=== PATIENT | female | born 1935 | race Caucasian/White ===

== ENCOUNTER → 2019-04-12 09:36 | Outpatient (CLI) | payer OTHER, SELFPAY ==
--- NOTE | 2019-04-12 09:39 | DI.RAD.S_ITS ---
PROCEDURE: XR KNEE RT 3V INDICATIONS: right knee pain TECHNIQUE: 3 views of the knee were acquired. COMPARISON: None. FINDINGS: Bones: There is severe medial and mild lateral right femorotibial compartment narrowing. There are large tricompartmental osteophytes and narrowing at the patellofemoral joint space. No acute fracture or dislocation. There is a questionable periarticular erosion along the lateral aspect of the tibial plateau. Soft tissues: No joint effusion. No suspicious soft tissue calcifications. IMPRESSION: 1. Severe right knee osteoarthritis. 2. Questionable periarticular bony erosion which may be associated with erosive arthritis. Dictated by: Kendra James M.D. on 04/12/2019 at 11:44 Approved by: Kendra James M.D. on 04/12/2019 at 12:51
--- NOTE | 2019-04-12 09:39 | DI.RAD.S_ITS ---
PROCEDURE: XR SHOULDER RT MIN 2V INDICATIONS: right shoulder pain TECHNIQUE: 3 views of the shoulder were acquired. COMPARISON: [facility], CR, XR SHOULDER MIN 2VW RT, 06/07/2015, 8:56. FINDINGS: Bones: There is severe narrowing of the right glenohumeral joint with bone on bone contact, subchondral sclerosis and cystic change. Periarticular osteophyte formation is present. There is mild flattening of the humeral head surface. Moderate acromioclavicular joint degeneration. Mild inferior migration of the humeral head Soft tissues: No suspicious soft tissue calcifications. IMPRESSION: 1. Progressive severe right glenohumeral joint degeneration with mild flattening of the humeral head surface and avascular necrosis cannot be excluded. If indicated MRI could be performed for further assessment. 2. Mild inferior migration of the humeral head and joint effusion cannot be excluded. Dictated by: Jorge Shields [facility] Interpreted: Felton Javier MD on 04/12/2019 at 10:35 Approved by: Felton Jaiver M.D. on 04/12/2019 at 12:54
== END ==
PROVIDERS: Family Provider Family Medicine; Visit Provider Physical Medicine & Rehabilitation
DX: M25.561 Pain in right knee (principal); M17.11 Unilateral primary osteoarthritis, right knee; M25.511 Pain in right shoulder; M19.011 Primary osteoarthritis, right shoulder
CPT/HCPCS: 73030; 73562

== ENCOUNTER → 2020-10-04 11:10 | Outpatient (CLI) | payer OTHER, SELFPAY ==
--- NOTE | 2020-10-04 | DI.US.S_ITS ---
PROCEDURE: US PERIPH VENOUS LOW EXTREM RT INDICATIONS: Rule out DVT TECHNIQUE: Real-time imaging, as well as color and pulse Doppler interrogation, were performed of the lower extremity deep veins from the inguinal ligament to the popliteal fossa. COMPARISON: None. FINDINGS: The common femoral, femoral and popliteal veins are normally compressible, and free of intraluminal thrombus. Color and pulse Doppler demonstrate normal phasic intraluminal flow. There is normal augmentation response to distal compression maneuver. The nonvascular ovoid foci can be seen within the right thigh anteriorly, at the areas of clinical concern. These measure 4.5 x 1.4 x 4 cm and 3.8 x 1.5 x 4 cm. No abnormal vascularity can be seen. A Parikh's cyst can also be seen measuring 4.1 x 1.1 x 3.1 cm. IMPRESSION: Negative for deep venous thrombosis. Apparent thigh lipoma is seen at the area of clinical concern. A Parikh's cyst can also be seen. Dictated by: Brennan Whaley M.D. on 10/04/2020 at 10:50 Approved by: Brennan Whaley M.D. on 10/04/2020 at 10:52
== END ==
PROVIDERS: Family Provider Family Medicine; PCP Student in an Organized Health Care Education/Training Program; Referring Provider Student in an Organized Health Care Education/Training Program; Visit Provider Student in an Organized Health Care Education/Training Program
DX: M25.561 Pain in right knee (principal); R22.41 Localized swelling, mass and lump, right lower limb; M71.21 Synovial cyst of popliteal space [Baker], right knee
CPT/HCPCS: 93971

== ENCOUNTER → 2020-11-29 14:29 | Outpatient (CLI) | payer OTHER, SELFPAY ==
--- NOTE | 2020-11-29 14:32 | DI.RAD.S_ITS ---
PROCEDURE: XR SHOULDER RT MIN 2V INDICATIONS: Knee/shoulder pain TECHNIQUE: Three views of the shoulder were acquired. COMPARISON: [facility], CR, XR SHOULDER RT MIN 2V, 04/12/2019, 9:41. FINDINGS: Bones: No acute fractures or dislocations. No suspicious bony lesions. Visualized ribs appear intact. Severe degenerative changes are seen in the glenohumeral joint with remodeling of the articular surfaces and marginal osteophyte formation, mildly progressed when compared to the radiographs from 04/12/2019. Mild to moderate acromioclavicular osteoarthrosis is present. Soft tissues: No suspicious soft tissue calcifications. IMPRESSION: Severe degenerative changes at the glenohumeral joint with remodeling of the articular surfaces, which may be related to primary osteoarthritis versus an inflammatory arthritis or prior trauma with secondary degenerative changes. Dictated by: Maury Esquivel M.D. on 12/04/2020 at 17:02 Approved by: Maury Esquivel M.D. on 12/04/2020 at 17:04
--- NOTE | 2020-11-29 14:32 | DI.RAD.S_ITS ---
PROCEDURE: XR KNEE RT 3V INDICATIONS: Knee pain TECHNIQUE: 3 views of the knee were acquired. COMPARISON: [facility], CR, XR KNEE RT 3V, 04/12/2019, 9:41. FINDINGS: Bones: No acute fracture is identified. Severe tricompartmental degenerative changes are seen with a grade joint space narrowing in the medial and lateral compartments and tricompartmental marginal osteophyte formation. There is irregularity of the medial femoral condyle articular surface that does not appear significantly changed, which may be related to subchondral osteophyte formation. The previously seen possible erosion at the lateral tibial plateau does not appear significantly changed. There is increased lucency in the central tibial plateau that could also be related to and osseous erosion. Soft tissues: Moderate joint effusion. Chondrocalcinosis is noted in the lateral compartment. IMPRESSION: 1. Severe tricompartmental degenerative changes, which may be secondary to primary osteoarthritis or an underlying inflammatory arthritis with secondary degenerative changes. 2. Moderate joint effusion. 3. Chondrocalcinosis. Dictated by: Maury Esquivel M.D. on 12/04/2020 at 16:57 Approved by: Maury Esquivel M.D. on 12/04/2020 at 17:01
== END ==
PROVIDERS: PCP Student in an Organized Health Care Education/Training Program; Referring Provider Physical Medicine & Rehabilitation; Visit Provider Physical Medicine & Rehabilitation
DX: M17.11 Unilateral primary osteoarthritis, right knee (principal); M25.461 Effusion, right knee; M11.261 Other chondrocalcinosis, right knee; M75.101 Unspecified rotator cuff tear or rupture of right shoulder, not specified as traumatic; M19.011 Primary osteoarthritis, right shoulder
CPT/HCPCS: 73030; 73562

== ENCOUNTER → 2021-03-19 16:34 | Outpatient (CLI) | payer OTHER, SELFPAY | PROVIDERS: PCP Student in an Organized Health Care Education/Training Program; Referring Provider Orthopaedic Surgery; Visit Provider Orthopaedic Surgery | DX: Z01.818 Encounter for other preprocedural examination (principal); Z01.812 Encounter for preprocedural laboratory examination | CPT/HCPCS: 93005 ==

== ENCOUNTER → 2021-03-28 14:33 | Outpatient (CLI) | payer OTHER, SELFPAY ==
[2021-03-28 15:18] LABS: Add Manual Diff / Slide Review NO; Basophils Absolute Auto 100 /uL (0-100); Eosinophils Absolute Auto 300 /uL (0-450); Eosinophils Percent Auto 5.9 % (2-4); Hematocrit 37.2 % (36-46); Lymphocytes Absolute Auto 1300 /uL (1100-4500); Lymphocytes Percent Auto 22.2 % (25-40); Mean Corpuscular HGB Conc 32.3 % (30-36); Mean Corpuscular Hemoglobin 30.7 PG (26-34); Mean Corpuscular Volume 95.1 fL (80-100); Monocytes Absolute Auto 500 /uL (0-900); Monocytes Percent Auto 9.1 % (3-14); Neutrophils Absolute Auto 3700 /uL (1500-7000); Neutrophils Percent Auto 61.8 % (50-75); Platelet Count 232 X10^3/uL (150-400); Red Blood Cell Count 3.92 X10^6/uL (4.0-5.2); Red Cell Distribution Width 13.4 % (11.6-14.8); White Blood Cell Count 5.9 X10^3/uL (4.5-11.0)
[2021-03-28 15:40] LABS: BUN Creatinine Ratio 21.5 (6-22); Blood Urea Nitrogen 28 mg/dL (7-17); Calcium 9.6 mg/dL (8.4-10.2); Carbon Dioxide 23 mmol/L (22-32); Chloride 108 mmol/L (98-107); Estimated Glomerular Filt Rate 38.8 mL/min (>60); Glucose 101 mg/dL (80-110); HEMOLYSIS < 15 (0-50); Potassium 4.8 mmol/L (3.4-5.1); Sodium 137 mmol/L (137-145)
== END ==
PROVIDERS: PCP Student in an Organized Health Care Education/Training Program; Referring Provider Orthopaedic Surgery; Visit Provider Orthopaedic Surgery
DX: I10 Essential (primary) hypertension (principal); Z01.818 Encounter for other preprocedural examination; Z01.812 Encounter for preprocedural laboratory examination
CPT/HCPCS: 36415; 80048; 85025

== ENCOUNTER → 2021-04-07 11:33 | Outpatient (CLI) | payer OTHER, SELFPAY ==
[2021-04-07 12:26] LABS: COVID19 -Nasal RAPID Negative (Negative)
== END ==
PROVIDERS: PCP Student in an Organized Health Care Education/Training Program; Visit Provider Physician Assistant
DX: Z01.812 Encounter for preprocedural laboratory examination (principal); Z20.822 Contact with and (suspected) exposure to COVID-19
CPT/HCPCS: 87635

== ENCOUNTER 2021-04-09 06:23 | Day surgery (SDC) | payer OTHER, SELFPAY ==
[2021-04-02 09:44] VITALS: BMI 33.0
[2021-04-09] VITALS (14 sets, daily range): BP systolic 109–162; BP diastolic 44–80; PULSE 55–106; RESP 11–99; TEMP 35.7–36.7; O2SAT 92–100; BMI 33.0
--- NOTE | 2021-04-09 06:39 | DI.RAD.S_ITS ---
PROCEDURE: XR KNEE RT 1TO2V INDICATIONS: post op total knee TECHNIQUE: 2 view(s) of the knee acquired. COMPARISON: [facility], CR, XR KNEE RT 3V, 11/29/2020, 14:33. FINDINGS: Bones: Patient is status post knee joint arthroplasty. Hardware components are in expected positions. Visualized bony structures are intact. Soft tissues: Overlying postoperative changes are noted. IMPRESSION: Expected postoperative appearance. Dictated by: Clifford Russo M.D. on 04/09/2021 at 10:54 Approved by: Clifford Russo M.D. on 04/09/2021 at 10:57
[2021-04-09] MEDS: PREGABALIN 75 MG CAPSULE PO (06:59)
[2021-04-09] MEDS: CELECOXIB 200 MG CAPSULE PO (07:00)
[2021-04-09] MEDS: ACETAMINOPHEN 325 MG TABLET 975 MG PO (07:00)
[2021-04-09] MEDS: LACTATED RINGERS 1,000 ML 42 ML IV (07:04)
--- NOTE | 2021-04-09 07:34 | PM.PREOP ---
Pre-operative Note COVID-19 COVID-19 status: Negative Result date/Date tested (Pos, Neg/Pending): 04/07/21 Interval Note History & Physical reviewed/Exam performed by Physician: Yes Changes to H&P: No
--- NOTE | 2021-04-09 07:34 | PM.OP.1 ---
Operative Date/Time/Diagnoses Date of procedure: 04/09/21 Time of procedure: 09:56 Pre-op diagnosis: Right knee osteoarthritis Post-op diagnosis: same Procedure & Clinicians Procedure: Right total knee replacement Same procedure as scheduled: Yes Indications: The patient has had progressively worsening right knee pain with radiographic changes consistent with arthritis. Non-operative management has failed and the patient has requested total knee replacement. The risks, benefits and alternatives to surgery were discussed with the patient prior to proceeding. Risks discussed included, but were not limited to, failure to relieve pain, stiffness, infection, nerve damage, deep venous thrombosis, pulmonary embolism, stroke, coma, heart attack, permanent paralysis and , as well as the potential need for eventual revision of the prosthetic. Surgeon: Carlos Eduardo Talamantes Charge Weigher: Tod Spence Click Yes if Unassisted: No Anesthesia Type: Local Operative Notes Findings: Severe tricompartmental osteoarthritis with large osteophytes, bony erosion, flexion contracture which was fixed. Closure Type: primary Specimen(s): none sent Prosthetic devices, grafts, tissues, transplants, or devices: Implants used in this procedure were manufactured by the [employer] and included the BCS II Journey total knee replacement with a size 5 right cobalt chromium femoral component, a size 4 right non porous tibial base plate, a 10 mm cross-linked polyethylene insert and a 32 mm oval Gabi II patella. Applied: implant(s) Estimated Blood Loss (mL): 25 Blood products transfused: none Tourniquet time (min): 61 Procedure in detail: The patient was seen in the pre-operative area, where the patient identified the right knee as the operative site and this was marked with my initials. The patient received pre-operative antibiotics, and was taken to the operating room and placed on the operative table in the supine position. After satisfactory anesthesia, a residential support specialist out was performed. The right leg was encircled with a tourniquet about the proximal thigh, and the leg was prepared from the toes to the tourniquet with ChloroPrep in the usual fashion and draped through sterile drapes. The leg was elevated and exsanguinated with Eschmark bandage and the tourniquet inflated to 250 mmHg pressure. The knee was approached through an approximately 18 cm incision centered over the patella and carried into the knee through a medial parapatellar arthrotomy. The anterior osteophytes and soft tissues were removed. The rotational landmarks of Meldrim's line and the transepicondylar axis were marked on the femur with electrocautery, and intramedullary guide holes for the femur and tibia were created. The distal femoral cut was made in 6 degrees of valgus using the intramedullary guide at the +2 cut setting due to her significant preoperative flexion contracture. The proximal tibial cut was then made using the intramedullary guide, taking 9 mm of bone off the less involved side. The extension gap was checked and the rotation of the femoral component confirmed with the gap balancing system. The anterior, posterior and chamfer cuts were then made. The posterior osteophytes and soft tissues were then removed. The posterior capsule was injected with part of a mixture of 60 ml 0.25% Marcaine mixed with 20 ml Exparel for post-operative pain control. The remainder of this mixture was injected into the capsule and subcutaneous tissues during cement curing. The tibia was prepared with the rotation set by an extra medullary guide. Trial tibial and femoral components were then placed and the intercondylar notch cut through the femoral trial. Range of motion was 0-135 degrees, with good stability throughout the range. The patella was then cut to accommodate the patellar prosthetic. There was no need for a lateral release. The trials were then removed, and the femoral hole plugged with a bone plug. The bone was prepared with pulsatile lavage, and dried with a sponge. Cement was applied and the final prosthetics placed. Excess cement was removed during and after cement curing. After confirming there was no extruded cement posteriorly, the final tibial insert was placed. The knee was copiously irrigated and the tourniquet deflated. Hemostasis was obtained. The capsule was closed with interrupted # 2 polyester suture. The subcutaneous layer was closed with 3-0 Vicryl, and the skin with a running 3-0 V-Lock suture and Dermabond. An Aquacel Ag dressing was applied and the patient was taken to recovery having tolerated the procedure well. Complications: none Post-operative Condition: stable Disposition: PACU Plan for aftercare: The patient will be maintained on a standard total knee replacement protocol with weight bearing as tolerated. The patient will receive aspirin and sequential compression devices for DVT prophylaxis. The patient will be discharged home when safe for the home environment.
[2021-04-09] MEDS: TRANEXAMIC ACID 1,000 MG VIAL 1000 MG INJ ×2 (08:20→09:20)
--- NOTE | 2021-04-09 08:26 | SUR.OPER ---
Supine on padded OR bed. Pillow under head, arms secured on padded armboards <90 degree abduction. Safety belt across torso. Non-operative leg secured with tape over blanket over lower leg. Operative leg secured in DeMayo/Hilario positioner. Foam padded brace at thigh of operative leg.
[2021-04-09] MEDS: BUPIVACAINE 0.25% (PF) VIAL 30 ML INJ (08:32)
[2021-04-09] MEDS: CEFAZOLIN 1 GM VIAL 2 GM IV (08:33)
[2021-04-09] MEDS: BUPIVACAINE LIPOSOME 266 MG/20 ML VIAL INJ (08:33)
[2021-04-09] MEDS: fentaNYL 100 MCG/2 ML INJ IV ×2 (10:22→10:39)
[2021-04-09] MEDS: OXYCODONE IR 5 MG TABLET 2.5 MG PO (10:22)
--- NOTE | 2021-04-09 10:57 | SUR.PHASEI ---
No pain to r knee, VSS, c/o l lower back/side pain, pt admitted it to be like her chronic back pain, pt medicated with fentanyl and oxycodone for back pain. spinal site c/d/i. Dr Wiley aware.No new orders. Pt turned to R side per request, warm blanket to back. Report called to BYRON De
--- NOTE | 2021-04-09 11:06 | SUR.PHASEI ---
Jarred score 7/10, BP normally 120/70- 160's on admit. Dr Saurabh hillman.
--- NOTE | 2021-04-09 11:07 | SUR.PHASEI ---
Pt transported up to room via bed on room air.
--- NOTE | 2021-04-09 11:20 | SUR.PHASEI ---
Pt left in room in stable condition, bed low, locked SCD's gun synchronizer light in reach.
[2021-04-09] MEDS: LACTATED RINGERS 1,000 ML 100 ML IV ×2 (11:21→21:02)
--- NOTE | 2021-04-09 13:04 | PC.NURSE ---
Patient alert, oriented rates left lower back pain 5/10 and reports it has improved. Given 2.5mg oxycodone in PACU. Denies nausea. PPP RLE, patient able to wiggle toes. Patient placed on 2L sats 96% RA sats 85% when asleep. Patient oriented to room and call light.
--- NOTE | 2021-04-09 14:12 | CM.DANOTE ---
Addendum entered by Debora Akbar R.N. 04/09/21 15:55: Checked back in with patient and daughter, Yahaira. Patient does have some outpatient P.T. set up starting on the , with [facility]. Daughter will be here later in the day, afternoon, for further caregiver training. Daughter agrees that if patient is able to get in the car from the hospital, she should be able to make her P.t. outpatient appointments. Will check in tomorrow and see how she does with P.T. Original Note: DCP: Case received, EMR reviewed and met with patient. Daughter, Yahaira Emery was at bedside. Introduced self and role. Was able to obtain information regarding patient's baseline activity status prior to surgery, as well patient's current living situation. DCP assessment completed with information currently available. Patient is an 86 year old female who admitted early this morning to the care of the orthopedic team. PCP: Dr. Parry. Payer: [facility]. Patient came to the hospital for a surgical procedure. She had right total knee surgery. Patient has history of osteoarthritis of her right knee. According to notes, patient has been full weight bearing at her baseline. She has also been under to care of Dr. Welch at the pain clinic. Met with patient in her room, and daughter, Yahaira, who was at bedside. Patient had her surgery this morning. She has not yet worked with P.T. Patient resides here in [place] with her daughter, Yahaira Emery, who is main contact. Patient has been a for approximately 5 years. She had been living in a 5th wheel on her daughter's property, but now, is living with her daughter. Daughter is employed out of home, working with and breeding animals. Patient has a cane and walker for home use. She stated that she can stay on the main level of her home, but the bathroom is downstairs. She gave up driving recently, and family will take her to appointments as needed. Daughter mentioned that she will have family support at home. Discussed discharge planning, and patient and daughter mentioned that Dr. Talamantes had mentioned the possibility of therapist coming to the home, for it will be difficult for patient to get in and out of car to go to outpatient P.T. Daughter also indicated that her mother only takes Tylenol for discomfort, is sensitive to stronger pain medications. They would like to have a therapist come to the house to give them some ideas of safety in the home. Brought in a Medicare Choice List of agencies that serve [place]. They will review. Will go ahead and start face to face. Patient has not yet worked with therapy team, will also need stair training. Discussed home health services with patient and daughter, and explained how they work, and is covered by [employer]. P: DCP to continue to follow. Will see how patient does with P.T. Will initiate face to face, and will follow up with patient and daughter regarding choice of home health agencies. Debora Akbar RN/Neck Band Maker
[2021-04-09] MEDS: ACETAMINOPHEN 325 MG TABLET 650 MG PO ×2 (14:30→21:00)
--- NOTE | 2021-04-09 15:27 | PT.IIE ---
Current Diagnoses Unilateral primary osteoarthritis, right knee (04/09/21) Surgery Performed Operation Date: 04/09/21 07:45 Actual Procedures p Total Knee Arthroplasty(Right) - Carlos Eduardo Talamantes MD Surgical History (Last Updated 04/02/21 @ 10:37 by Nery Steven RN) History of arthroplasty of left knee (03/10/07) History of bladder suspension procedure History of surgery Hx of arthroscopy of right knee (2003) Hx of bilateral cataract extraction Hx of blepharoplasty (03/24/13) Hx of cholecystectomy Hx of dilation and curettage Hx of discectomy (1979) Hx of tonsillectomy Hx of tubal ligation Status post replacement of left shoulder joint Medical History (Last Updated 04/02/21 @ 10:27 by Nery Steven RN) Anemia CKD (chronic kidney disease) Diabetes DJD of right shoulder Gout Hearing impaired Hiatal hernia HLD (hyperlipidemia) HTN (hypertension) Osteoarthritis Osteoporosis Rotator cuff tear arthropathy of right shoulder Seasonal allergies Spinal stenosis Urge incontinence Physical Therapy Inpatient Evaluation/Re-Eval M1 PT/OT-IP Prior Functional Status Start: 04/09/21 11:50 Freq: NEEDED Status: Active Protocol: Document 04/09/21 15:27 AW (Rec: 04/09/21 15:52 AW [id number]) Medical Review Prior Functional Status Medical History Reviewed Yes Communication WNL. Pt is an effective verbal communicator. Mobility and Gait Pt uses a tripod cane ~90% of the time. She states she can walk in to [facility] and then uses a regular shopping cart for stability. In the past few weeks, she has resorted to using a motorized cart due to pain. Activities of Daily Living and IADL's Independent with ADL's. Social History Household Members children Living Arrangements House Number of Floors (Floors) Two Floors Number of Stairs To Enter/Railing? Pt has 3 JOURDAN with R rail ascending. She stays on the main level but likes to go downstairs to use the shower. However, she states she does not anticipate showering first week at home and can use the main floor toilet. Home Environment High Toilet,Tub/Shower Home Equipment Front Wheel Walker,Four Wheel Walker,Grab Bars In Shower Additional Social History Comment Pt has a sink/vanity on the left side of the toilet. She normally sleeps on a tall bed but plans to use a lower day bed at first. Pt's daughter, son in law, and grandson live downstairs. They are not normally home but have planned for someone to be available at all times at discharge. 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 Onset Date 04/09/21 Weight Bearing Status Weight Bearing Status Weight Bear as Tolerated M3 PT-IP Subjective Start: 04/09/21 11:50 Freq: NEEDED Status: Active Protocol: Document 04/09/21 15:27 AW (Rec: 04/09/21 15:52 AW [id number]) Subjective Physical Therapy Visit Type Type Initial Evaluation Visit Start Time 14:45 Visit Stop Time 15:27 Total Visit Minutes 42 Notes Pt's daughter, Yahaira, was present throughout evaluation. Number of JIG BORE OPERATOR Visits 0 Physical Therapy Visit Comments Patient Comments Pt would like to use the commode. Patient Goals Return home with family support. Therapy Pain Assessment Pain When Pain Assessed During Mobility Pain Present Pain Present Pain Reported Location right knee Intensity 6 Scale Used Numeric (0 - 10) Pain Management Techniques Apply Cold,Timing of Activity with Medications M4 PT-IP Mobility and Gait Start: 04/09/21 11:50 Freq: NEEDED Status: Active Protocol: Document 04/09/21 15:27 AW (Rec: 04/09/21 15:52 AW [id number]) PT-Bed Mobility Assessment Supine to Sit Supine to Sit Minimal Assistance,1 Person Assistance Sit to Supine Sit to Supine Minimal Assistance,1 Person Assistance Scooting Scooting to Edge of Bed Contact Guard Assistance PT-Transfer Assessment Sit to and From Stand Sit to and from Stand Contact Guard Assistance, Minimal Assistance,1 Person Assistance,Use of Upper Extremities Equipment Transfer Assistive Device Gait Belt,Front Wheeled Walker Orthotic/Prosthetic Devices or Brace: No Transfers Transfer Destination Bed,Bedside Commode Transfer Technique Stand Step Pivot Transfer Ability Level of Assist Contact Guard Assistance Comments Mobility Comments Pt was sitting up in bed as PT arrived and was anxious to use the BSC. BP was 122/68 HR 62. With HOB flat, pt transitioned to long sitting and then required min assist to move her legs toward the left side of the bed, exiting as she would at home. Pt denied lightheadedness. She stood from the bed min assist and used the FWW to transfer to BSC set up on her right side. She voided and then stood CGA to complete pericare . She used FWW to ambulate 12 feet in the room CGA with one instance of buckling RLE. She needed no additional assist to recover. She returned to the bed and completed supine to sit min assist to elevate the operative leg to the bed. Pt was positioned with call light and tray table in reach. Her daughter remained in the room. Caregiver training arranged for 1600 tomorrow. Care Management was informed. Gait Assessment Gait Gait Assistance Required: Contact Guard Assist Distance (Feet) 12 Able to Maintain Weight Bearing Status Yes During Gait Assistive Devices Assistive Device Gait Belt,Front Wheeled Walker Orthotic/Prosthetic Devices or Brace: No Gait Deviations General Gait Pattern Antalgic,Decreased Stride Length,Festinating,Flexed Trunk,Step-to Gait Factors Limiting Gait Function Factors Limiting Gait Function Decreased Activity Tolerance, Decreased Sensation,Decreased Strength,Limited Range of Motion,Pain,Poor Balance Comments Gait Comments See mobility comments for details. Stair Climbing Assessment Comments Stair Climbing Comments Not assessed. PT-Balance Assessment Sitting Balance and Reactions Static Sitting Balance Ability Good Dynamic Sitting Balance Ability Good Standing Balance and Reactions Static Standing Balance Ability Good Dynamic Standing Balance Ability Fair Device Used FWW M5 PT-IP Objective Assessments Start: 04/09/21 11:50 Freq: NEEDED Status: Active Protocol: Document 04/09/21 15:27 AW (Rec: 04/09/21 15:52 AW [id number]) Orientation Orientation/Cognition Level of Alertness Alert Orientation Name Language Function Ability No Deficits Noted Safety Awareness Understands Safety Issues Memory Description No Deficits Noted Gross Range of Motion Lower Extremity ROM Assessment Right Impaired Impairments R knee 5-75 Strength Lower Extremity Strength Assessment Right Impaired Hip 3/5 Ankle 4-/5 Comments Strength Comments LLE grossly 4/5 Sensation Assessment Sensation Gross Sensation WNL M6 PT-IP Treatment Start: 04/09/21 11:50 Freq: NEEDED Status: Active Protocol: Document 04/09/21 15:27 AW (Rec: 04/09/21 15:52 AW [id number]) Physical Therapy Treatment Exercises Exercises Ankle Pumps,Passive Knee Extension Hang Education Education Provided Weight Bearing Status,Post-Op Packet,Safety Other Treatments Other Treatment Performed Educated pt and her daughter on PT plan of care, weightbearing status, and rationale for use of FWW at this time. M7 PT-IP Assessment and Plan Start: 04/09/21 11:50 Freq: NEEDED Status: Active Protocol: Document 04/09/21 15:27 AW (Rec: 04/09/21 15:52 AW [id number]) PT Summary Assessment and Plan Potential Rehabilitation Potential Good Status of Condition at Evaluation Evolving Summary Impairments Pain,ROM,Strength,Balance, Sensation,Bed Mobility, Transfers,Gait Assessment Summary Alexa is an 86 yo woman seen for PT evaluation on POD0 following R TKA. She is modified independent at baseline with use of tripod cane and has family at home to provide assist with ADL's as needed. On evaluation, pt required CGA to min assist for mobility. PT anticipates she will progress and be safe to discharge home with assist and outpatient PT once medically stable. Will conduct stair and caregiver training tomorrow at 16:00 with pt's daughter. Goals Bed Mobility Goal Standby Assistance Transfer Goal Standby Assistance,Front Wheeled Walker Gait Goal Standby Assistance,Front Wheel Walker Gait Distance 100 Other Goals - up/down 3 steps with R rail ascending CGA Days to Meet Goals 3 Frequency of Treatment Frequency Of Treatment Twice a Day Treatment Plan Physical Therapy Treatment Plan Bed Mobility Training,Transfer Training,Gait Training, Therapeutic Exercise,Balance Retraining,Post Op Education, Discharge Planning,Hot or Cold Pack Other Recommendations and Next Treatment transfers, ambulation, CGT ( Focus incl stairs) at 1600 Precautions Other Precautions WBAT RLE Recommendations To Nursing Amount of Assist Needed 1 Person Assist Discharge Recommendations PT Discharge Recommendations Home with 19/05 Assist Available,Outpatient PT Equipment Needed for Home Before consider tub transfer bench Discharge Transportation Needs at Discharge Private Vehicle
[2021-04-09] MEDS: METFORMIN HCL 500 MG TABLET PO (17:03)
[2021-04-09] MEDS: TAMSULOSIN 0.4 MG CAPSULE PO (20:59)
[2021-04-09] MEDS: VIT C/E/ZN/COPPR/LUTEIN/ZEAXAN CAPSULE 1 CAP PO (20:59)
[2021-04-09] MEDS: OXYBUTYNIN 5 MG TABLET PO (20:59)
[2021-04-09] MEDS: PANTOPRAZOLE DR 20 MG TABLET PO (20:59)
[2021-04-09] MEDS: ASPIRIN EC 81 MG TABLET PO (21:00)
[2021-04-09] MEDS: DOCUSATE 100 MG CAPSULE PO (21:00)
[2021-04-09] MEDS: hydrOXYzine pamoate 25 MG CAPSULE PO (23:41)
[2021-04-10 05:31] VITALS: BP 156/74; PULSE 60; RESP 16; TEMP 36.1
[2021-04-10 06:32] LABS: Hematocrit 31.4 % (36-46); Hemoglobin 10.3 g/dL (12.0-16.0)
[2021-04-10] MEDS: VIT C/E/ZN/COPPR/LUTEIN/ZEAXAN CAPSULE 1 CAP PO (07:54)
[2021-04-10] MEDS: ASPIRIN EC 81 MG TABLET PO (07:54)
[2021-04-10] MEDS: METFORMIN HCL 500 MG TABLET PO (07:54)
[2021-04-10] MEDS: PANTOPRAZOLE DR 20 MG TABLET PO (07:54)
[2021-04-10] MEDS: ACETAMINOPHEN 325 MG TABLET 650 MG PO ×2 (07:54→14:27)
[2021-04-10] MEDS: OXYBUTYNIN 5 MG TABLET PO (07:55)
[2021-04-10] MEDS: DOCUSATE 100 MG CAPSULE PO (07:55)
[2021-04-10] MEDS: ACEBUTOLOL 200 MG CAPSULE 400 MG PO (07:55)
--- NOTE | 2021-04-10 07:55 | P.DS_ITS ---
History of Present Illness History of Present Illness Date Patient Seen: 04/10/21 Time Patient Seen: 07:55 Chief complaint: OPB Narrative: The history and physical is contained in the chart in a previous note. Please refer to that note for this information. Discharge Providers Provider Discharge Date: 04/10/21 Primary care physician: Denisse Parry MD Consults: 04/09/21 11:14 Consult to Discharge Planning Routine Comment: Consult to Physical Therapy Evaluate & Treat Comment: Physician Instructions: postop TKA protocol Discharge provider: Carlos Eduardo Talamantes MD Summary Hospital Course Discharge Diagnosis: 1. Right knee osteoarthritis 2. Post hemorrhagic anemia Hospital Course: The patient was admitted to the hospital and taken directly to the operating room on April 09, 2021 where she underwent a right total knee replacement without complications. She had a mild post hemorrhagic anemia postoperative day 1 which will not require specific treatment. At the time of this dictation it is anticipated that she will make satisfactory progress during the day and be ready for discharge home later in the day. Status at Discharge Cognitive/behavioral status at discharge: oriented Functional status at discharge: independent ambulation Overall status at discharge: patient is progressing back to baseline Time Spent with Patient Time spent: Less than 30 minutes Exam Vital Signs (past 8 hours): - 04/10/21 05:31 Temperature 97.0 F L Pulse Rate 60 Respiratory Rate 16 Blood Pressure 156/74 H Oxygen Delivery Method Room Air Oxygen Flow Rate 0 Narrative Exam Narrative: Right knee wound is dressed with no drainage on the bandage. Calf is soft. Light touch and motion are intact in the right lower extremity. Objective Labs Result Diagrams: 04/10/21 06:06 Labs: Laboratory Results - last 24 hr 04/10/21 06:06 Hgb 10.3 L Hct 31.4 L PFSH Medical History (Updated 04/02/21 @ 10:27 by Nery Steven RN) Anemia CKD (chronic kidney disease) Diabetes DJD of right shoulder Gout Hearing impaired Hiatal hernia HLD (hyperlipidemia) HTN (hypertension) Osteoarthritis Osteoporosis Rotator cuff tear arthropathy of right shoulder Seasonal allergies Spinal stenosis Urge incontinence Surgical History (Updated 04/02/21 @ 10:37 by Nery Steven RN) History of arthroplasty of left knee (03/10/07) History of bladder suspension procedure History of surgery Hx of arthroscopy of right knee (2003) Hx of bilateral cataract extraction Hx of blepharoplasty (03/24/13) Hx of cholecystectomy Hx of dilation and curettage Hx of discectomy (1979) Hx of tonsillectomy Hx of tubal ligation Status post replacement of left shoulder joint Family History Father Aortic aneurysm Mother Heart disease Brother Bladder cancer Social History marital status: unknown household members: children occupational status: previously employed Smoking Status: Never smoker alcohol intake: current substance use type: does not use Discharge Assessment & Plan Assessment and Plan Assessment: Stable postoperative day 1 status post right total knee replacement with mild post hemorrhagic anemia. Plan of Treatment: The patient is to see physical therapy today. If she make satisfactory progress she will be discharged later in the day. Follow-up will be at my office in 10- 14 days. A prescription for a 2.5-5 mg dose of oxycodone has been sent to [facility]. She has also been instructed in the use of Tylenol for postoperative pain control in addition to her Mobic. She is already on aspirin 81 mg b.i.d. for DVT prophylaxis. Discharge Plan Discharge Plan Patient Disposition: Home Discharge orders & Medications Discharge Orders: Discharge (Order); Ordered 04/10/21 Ordered By: Carlos Eduardo Talamantes Prescriptions: New acetaminophen 325 mg Tablet 650 mg PO TID 30 Days Qty: 180 RF: 0 oxycodone 5 mg Tablet 5 mg PO Q4HR PRN (Reason: Pain, Moderate (4-6)) Qty: 20 RF: 0 Continued metformin [Glucophage] 500 MG tablet 500 mg PO BID Qty: 0 RF: 0 lisinopril 20 MG tablet 20 mg PO QDAY Qty: 0 RF: 0 triamterene-hydrochlorothiazid [Dyazide] 37.5 MG/25 MG capsule 1 cap PO QDAY Qty: 90 RF: 3 aspirin 81 mg Tablet 81 mg PO BID RF: 0 PreserVision AREDS-2 250-90-40-1 mg Capsule 1 tab PO BID RF: 0 oxybutynin chloride 5 mg tablet 5 mg PO BID RF: 0 tamsulosin 0.4 mg capsule 0.4 mg PO BEDTIME RF: 0 acebutolol 400 mg capsule 400 mg PO DAILY RF: 0 omeprazole 20 mg tablet,delayed release (DR/EC) 20 mg PO BID RF: 0 meloxicam 15 mg tablet 15 mg PO DAILY RF: 0 Follow up/Referrals: Denisse Parry MD [Primary Care Provider] - Carlos Eduardo Talamantes MD [Physician] - 2 Weeks Diet/Activity/Treatments Diet: Diet as Tolerated and Carb-consistent/Diabetic Activity: You may bear weight as tolerated on your right knee. Cold/Heat Therapy: You may apply ice for 15 minutes of every hour as needed to the right knee for pain control. Skin/Wound/Dressing Care Report to your healthcare provider any signs of infection, such as:: chills, fever, night sweats, increased pain, unusual drainage and unusual redness Dressing: You may remove the Marbin wrap 3 days after surgery and shower normally with the deeper dressing in place. Leave the deeper dressing on until your follow-up. If the central strip of the deeper dressing becomes saturated with either water or blood, please call the office to have it changed. Visit Report/Discharge Packet Instructions: DI for Knee Replacement Stand Alone Forms: Surgery Discharge Discharge Data Primary Care Provider: Denisse Parry Attending Provider: Carlos Eduardo Talamantes
[2021-04-10] MEDS: lisinopriL 20 MG TABLET PO (08:02)
[2021-04-10] MEDS: INSULIN LISPRO 100 UNIT/ML 3ML VIAL SUBCUT (08:02)
[2021-04-10] MEDS: MELOXICAM 7.5 MG TABLET 15 MG PO (08:02)
[2021-04-10] MEDS: TRIAMTERENE/HCTZ 37.5/25 CAPSULE 1 CAP PO (08:02)
[2021-04-10 08:37] VITALS: BP 152/66; PULSE 67; RESP 18; TEMP 36.4; O2SAT 98
--- NOTE | 2021-04-10 10:10 | PT.IPTN ---
Current Diagnoses Unilateral primary osteoarthritis, right knee (04/09/21) Surgery Performed Operation Date: 04/09/21 07:45 Actual Procedures p Total Knee Arthroplasty(Right) - Carlos Eduardo Talamantes MD Physical Therapy Treatment Note M2 PT-IP Current Condition Start: 04/09/21 11:50 Freq: NEEDED Status: Active Protocol: Document 04/09/21 15:27 AW (Rec: 04/09/21 15:52 AW [id number]) Physical Therapy Current Condition Current Condition Evaluation Date 04/09/21 Treatment Diagnosis s/p R TKA; difficulty in walking. Onset Date 04/09/21 Weight Bearing Status Weight Bearing Status Weight Bear as Tolerated M3 PT-IP Subjective Start: 04/09/21 11:50 Freq: NEEDED Status: Active Protocol: Document 04/10/21 09:35 SP (Rec: 04/10/21 11:37 SP [id number]) Subjective Physical Therapy Visit Type Type Treatment Note Visit Start Time 09:35 Visit Stop Time 10:10 Total Visit Minutes 35 Number of INVESTIGATOR VICE Visits 1 Physical Therapy Visit Comments Patient Comments Pt willing to work with therapy. Patient Goals Return home with family support. Therapy Pain Assessment Pain When Pain Assessed During Mobility Pain Present Pain Present Pain Reported Location right knee Intensity 2 Scale Used 1-2/10 at rest, 7-8/10 during mob Description Pressure,Spasm,Tightness,With Movement Pain Behaviors Facial Grimacing Pain Management Techniques Distraction,Re-positioning, Timing of Activity with Medications M4 PT-IP Mobility and Gait Start: 04/09/21 11:50 Freq: NEEDED Status: Active Protocol: Document 04/10/21 09:35 SP (Rec: 04/10/21 11:37 SP [id number]) PT-Bed Mobility Assessment Sit to Supine Sit to Supine Standby Assistance PT-Transfer Assessment Sit to and From Stand Sit to and from Stand Standby Assistance,Use of Upper Extremities Equipment Transfer Assistive Device Gait Belt,Front Wheeled Walker ,4 Wheeled Walker Orthotic/Prosthetic Devices or Brace: No Transfers Transfer Destination Bed Transfer Technique Pt ambulated using FWW, 4WW Transfer Ability Level of Assist Standby Assistance,Use of Upper Extremities Comments Mobility Comments Pt was reclined chair when arrived. Assisted lowering leg rests. Scoot to EOC and sit> stand SBA with use BUE. Pt ambulated around room using FWW and back to chair, good position and slow descent using BUE. SIt>stand using 4WW with cue x1 for brake mgt check prior to stand. Pt ambulated further into hallway to stairs, complete stairs and back to room approx 220 ft using 4WW SBA. Pt demonstrated good positioning and 4WW brake mgt at EOB and reaching back for slow descent to sit EOB, sit>supine with ability to lift RLE itself and lateral scoot to center herself in bed. Reviewed post op ex, provided gait belt for self heel slides. Pt had call light and all needs in reach. Pt stated daughter is nervous and requested caregiver training at 330 today due to previous surgeries she needed extra physical support and wanted to work together in PT for safety before DC. Will conduct caregiver training at that time and be ready to return home with daughter to assist her when needed if when medically cleared. Pt stated has Outpatient PT already set up with assist for transportation. Gait Assessment Gait Gait Assistance Required: Standby Assistance Distance (Feet) 220 Able to Maintain Weight Bearing Status Yes During Gait Assistive Devices Assistive Device Gait Belt,Front Wheeled Walker Orthotic/Prosthetic Devices or Brace: No Gait Deviations General Gait Pattern Antalgic,Decreased Stride Length,Festinating,Flexed Trunk Factors Limiting Gait Function Factors Limiting Gait Function Decreased Activity Tolerance, Decreased Sensation,Decreased Strength,Limited Range of Motion,Pain Comments Gait Comments Pt walked using FWW in room step over step sBA with good pacing 30 ft. Pt ambulated in hallway 220 ft using 4WW with good brake mgt SBA, step over step occasional cuing for quad facilitation for knee extension to allow for decreased pain over anterior R knee due in slightly flexion position during midstance with good feedback helped decreased pain. Stair Climbing Assessment Evaluation Level of Assist On Stairs Minimal Assistance Devices Stair Climbing Assistive Devices Right Railing Technique/Endurance Stair Climbing Direction Ascend and Descend Stair Climbing Technique Step to Step Number of Steps Climbed 3 Stair Climbing Set # Repetitions (reps) 1 Comments Stair Climbing Comments Pt completed ascend/descend 3 stairs step to patterning using CARE TRANSITION COORDINATOR on L and RHR. Pt states has hurry cane at home wants to use for mobility so assimulated CARE TRANSITION COORDINATOR on L Min A for WB LUE, stable. Will assess use of BUE on R HR or SPC in LUE during pm tx during caregiver training. PT-Balance Assessment Sitting Balance and Reactions Static Sitting Balance Ability Normal Dynamic Sitting Balance Ability Normal Standing Balance and Reactions Static Standing Balance Ability Good Dynamic Standing Balance Ability Good Device Used FWW & 4WW M5 PT-IP Objective Assessments Start: 04/09/21 11:50 Freq: NEEDED Status: Active Protocol: Document 04/09/21 15:27 AW (Rec: 04/09/21 15:52 AW [id number]) Orientation Orientation/Cognition Level of Alertness Alert Orientation Name Language Function Ability No Deficits Noted Safety Awareness Understands Safety Issues Memory Description No Deficits Noted Gross Range of Motion Lower Extremity ROM Assessment Right Impaired Impairments R knee 5-75 Strength Lower Extremity Strength Assessment Right Impaired Hip 3/5 Ankle 4-/5 Comments Strength Comments LLE grossly 4/5 Sensation Assessment Sensation Gross Sensation WNL M6 PT-IP Treatment Start: 04/09/21 11:50 Freq: NEEDED Status: Active Protocol: Document 04/10/21 09:35 SP (Rec: 04/10/21 11:37 SP [id number]) Physical Therapy Treatment Exercises Exercises Ankle Pumps,Quad Sets,Heel Slides,Supine Hip Abduction, Seated Knee Flexion/Extension Knee ROM Measurement 70 deg in supine during HS using gait belt AAROM Education Education Provided Weight Bearing Status,Post-Op Packet,Safety Other Treatments Other Treatment Performed INVESTIGATOR VICE educated pt is ok to use fWW or 4WW at this time with good demonstration during tx. M7 PT-IP Assessment and Plan Start: 04/09/21 11:50 Freq: NEEDED Status: Active Protocol: Document 04/10/21 09:35 SP (Rec: 04/10/21 11:37 SP [id number]) PT Summary Assessment and Plan Potential Rehabilitation Potential Good Status of Condition at Evaluation Evolving Summary Impairments Pain,ROM,Strength,Balance, Sensation,Bed Mobility, Transfers,Gait Progress Towards Goals Progressing Toward Goals,Slow Progress due to Pain Assessment Summary Pt is SBA during all mobility using FWW or 4WW. Min A during stair mgt but support was CARE TRANSITION COORDINATOR on L due to not having cane, will assess cane and or b UE on R HR during caregiver training at 1530 per daughter' s request when she arrives. INVESTIGATOR VICE anticipates she will progress and be safe to discharge home with assist and outpatient PT once medically stable. Will conduct stair and caregiver training tomorrow at 1530 with pt's daughter. Goals Bed Mobility Goal Standby Assistance Transfer Goal Standby Assistance,Front Wheeled Walker Gait Goal Standby Assistance,Front Wheel Walker Gait Distance 100 Other Goals - up/down 3 steps with R rail ascending CGA Days to Meet Goals 3 Frequency of Treatment Frequency Of Treatment Twice a Day Treatment Plan Physical Therapy Treatment Plan Bed Mobility Training,Transfer Training,Gait Training, Therapeutic Exercise,Balance Retraining,Post Op Education, Discharge Planning,Hot or Cold Pack Other Recommendations and Next Treatment transfers, ambulation, CGT ( Focus incl stairs) at 1530 Precautions Other Precautions WBAT RLE Recommendations To Nursing Amount of Assist Needed Standby Assistance Discharge Recommendations PT Discharge Recommendations Home with Assistance, Outpatient PT Equipment Needed for Home Before consider tub transfer bench Discharge Transportation Needs at Discharge Private Vehicle
[2021-04-10] MEDS: OXYCODONE IR 5 MG TABLET PO (10:59)
--- NOTE | 2021-04-10 14:30 | PT.IPTN ---
Current Diagnoses Unilateral primary osteoarthritis, right knee (04/09/21) Surgery Performed Operation Date: 04/09/21 07:45 Actual Procedures p Total Knee Arthroplasty(Right) - Carlos Eduardo Talamantes MD Physical Therapy Treatment Note M2 PT-IP Current Condition Start: 04/09/21 11:50 Freq: NEEDED Status: Discharge Protocol: Document 04/09/21 15:27 AW (Rec: 04/09/21 15:52 AW [id number]) Physical Therapy Current Condition Current Condition Evaluation Date 04/09/21 Treatment Diagnosis s/p R TKA; difficulty in walking. Onset Date 04/09/21 Weight Bearing Status Weight Bearing Status Weight Bear as Tolerated M3 PT-IP Subjective Start: 04/09/21 11:50 Freq: NEEDED Status: Discharge Protocol: Document 04/10/21 14:30 AB (Rec: 04/10/21 17:00 AB [id number]) Subjective Physical Therapy Visit Type Type Treatment Note Visit Start Time 14:30 Visit Stop Time 16:45 Total Visit Minutes 55 Notes pt seen for split visits: 1430 to 1445 and 1605 to 1645 Physical Therapy Visit Comments Patient Comments pt agreeable to do PT Therapy Pain Assessment Pain When Pain Assessed At Rest Pain Present Pain Present Pain Reported Location right knee Intensity 4 Scale Used Numeric (0 - 10) Pain Management Techniques Distraction,Elevation, Modification of Treatment,Re- positioning,Timing of Activity with Medications M4 PT-IP Mobility and Gait Start: 04/09/21 11:50 Freq: NEEDED Status: Discharge Protocol: Document 04/10/21 14:30 AB (Rec: 04/10/21 17:00 AB [id number]) PT-Bed Mobility Assessment Supine to Sit Supine to Sit Standby Assistance Sit to Supine Sit to Supine Standby Assistance PT-Transfer Assessment Sit to and From Stand Sit to and from Stand Standby Assistance,Contact Guard Assistance,1 Person Assistance,Use of Upper Extremities Equipment Transfer Assistive Device Gait Belt,4 Wheeled Walker Orthotic/Prosthetic Devices or Brace: No Transfers Transfer Destination Bed,Chair Transfer Technique Stand Step Pivot Transfer Ability Level of Assist Standby Assistance,Contact Guard Assistance Comments Mobility Comments checked on pt to see if pt's daughter can come in earlier but pt unable to get an answer from her daughter. pt then had questions regarding home needs, exercises and set up. educated pt on exercises, home set up, stair climbing and safety. checked back on pt and daughter in room. caregiver training conducted. educated pt's daughter on how to use safety belt and how to assist pt. daugther was able to put safety belt on pt and assisted pt with sit to stand and ambulation using FWW towards the stairs. pt completed up/ down steps holding on to R rail with B hands and daughter was able to assist pt safely. pt ambulated back to her room. sat on EOB and demonstrated supine <>sit SBA. cues provided for techniques . daughter was able to provide instructions to pt. pt then transferred to chair using 4WW SBA. pt prefers 4WW for mobility but stated that she will use FWW for toilet transfers. pt had rubber back legs on FWW and instructed to put in skids /tennis balls for safety. daughter understood and agreed . educated on car transfers and tub transfers. Pt and daughter have no other concerns and comfortable with going home. informed nurse that pt is ready for d/c. Gait Assessment Gait Gait Assistance Required: Standby Assistance,Contact Guard Assist Distance (Feet) 125 Able to Maintain Weight Bearing Status Yes During Gait Assistive Devices Assistive Device Gait Belt,4 Wheeled Walker Orthotic/Prosthetic Devices or Brace: No Gait Deviations General Gait Pattern Antalgic,Decreased Stride Length,Decreased Feet Clearance Factors Limiting Gait Function Factors Limiting Gait Function Decreased Activity Tolerance, Decreased Strength,Limited Range of Motion,Pain,Poor Balance,Poor Safety Awareness Comments Gait Comments pls refer to mobility section for details Stair Climbing Assessment Evaluation Level of Assist On Stairs Contact Guard Assistance,1 Person Assistance Devices Stair Climbing Assistive Devices Right Railing Technique/Endurance Stair Climbing Direction Ascend and Descend Stair Climbing Technique Step to Step Number of Steps Climbed 3 Stair Climbing Set # Repetitions (reps) 1 M5 PT-IP Objective Assessments Start: 04/09/21 11:50 Freq: NEEDED Status: Discharge Protocol: Document 04/09/21 15:27 AW (Rec: 04/09/21 15:52 AW [id number]) Orientation Orientation/Cognition Level of Alertness Alert Orientation Name Language Function Ability No Deficits Noted Safety Awareness Understands Safety Issues Memory Description No Deficits Noted Gross Range of Motion Lower Extremity ROM Assessment Right Impaired Impairments R knee 5-75 Strength Lower Extremity Strength Assessment Right Impaired Hip 3/5 Ankle 4-/5 Comments Strength Comments LLE grossly 4/5 Sensation Assessment Sensation Gross Sensation WNL M6 PT-IP Treatment Start: 04/09/21 11:50 Freq: NEEDED Status: Discharge Protocol: Document 04/10/21 14:30 AB (Rec: 04/10/21 17:00 AB [id number]) Physical Therapy Treatment Education Education Provided Precautions,Weight Bearing Status,Safety M7 PT-IP Assessment and Plan Start: 04/09/21 11:50 Freq: NEEDED Status: Discharge Protocol: Document 04/10/21 14:30 AB (Rec: 04/10/21 17:00 AB [id number]) PT Summary Assessment and Plan Potential Rehabilitation Potential Good Summary Impairments Pain,ROM,Strength,Balance, Coordination,Sensation,Tone, Cognition,Bed Mobility, Transfers,Gait,Activity Tolerance Progress Towards Goals Progressing Toward Goals Assessment Summary caregiver training conducted and pt's daughter is able to assist pt safety with mobility . pt plans to go home today. pt is set up for outpt PT next week. pt may go home when medically stable. Goals Bed Mobility Goal Standby Assistance Transfer Goal Standby Assistance,Front Wheeled Walker Gait Goal Standby Assistance,Front Wheel Walker Gait Distance 100 Other Goals - up/down 3 steps with R rail ascending CGA Days to Meet Goals 3 Frequency of Treatment Frequency Of Treatment Twice a Day Treatment Plan Physical Therapy Treatment Plan Bed Mobility Training,Transfer Training,Gait Training, Therapeutic Exercise,Balance Retraining,Post Op Education, Discharge Planning,Hot or Cold Pack Precautions Other Precautions WBAT RLE Recommendations To Nursing Amount of Assist Needed 1 Person Assist Discharge Recommendations PT Discharge Recommendations Home with Assistance, Outpatient PT Transportation Needs at Discharge Private Vehicle
[2021-04-10 15:45] VITALS: BP 99/54; PULSE 71; RESP 22; TEMP 36.1; O2SAT 99
== END 2021-04-10 16:59 | disposition home or self-care (01) ==
LOC: OR 06:24 → AC 06:29
PROVIDERS: PCP Student in an Organized Health Care Education/Training Program; Referring Provider Orthopaedic Surgery; Visit Provider Orthopaedic Surgery
PROC: 0SRC0JZ Replacement of Right Knee Joint with Synthetic Substitute, Open Approach (ICD-10-PCS; CPT 27447; principal; 2021-04-09 07:45)
DX: M17.11 Unilateral primary osteoarthritis, right knee (principal); M25.761 Osteophyte, right knee; K21.9 Gastro-esophageal reflux disease without esophagitis; I10 Essential (primary) hypertension; N18.9 Chronic kidney disease, unspecified; R73.03 Prediabetes; Z79.84 Long term (current) use of oral hypoglycemic drugs
CPT/HCPCS: 27447; 36415; 73560; 82962; 85014; 85018; 97110; 97116; 97161; 97530; C1776; C9290; J0690; J1100; J1815; J2250; J2405; J2704; J3010

== ENCOUNTER → 2024-04-22 | Outpatient (CLI) | payer OTHER, SELFPAY ==
[2021-04-09 12:00] VITALS: BMI 33.0
--- NOTE | 2024-04-22 15:31 | DI.RAD.S_ITS ---
PROCEDURE: XR DEXA AXIAL SKELETON INDICATIONS: SYSTOLIC MURMUR/OSTEOPOROSIS COMPARISON: None. FINDINGS: Lumbar Spine: Bone mineral density 1.366 g/cm2, T score 2.9, normal. Left Hip: Bone mineral density 0.742 g/cm2, T score -1.6, osteopenia. Left Femoral Neck: Bone mineral density 0.606 g/cm2, T score -2.2, osteopenia. Right Hip: Bone mineral density 0.679 g/cm2, T score -2.2, osteopenia. Right Femoral Neck: Bone mineral density 0.546 g/cm2, T score -2.7, osteoporosis. Fracture Risk Calculation (when applicable): Not listed due to osteoporosis. (T score greater or equal to -1.0 to: NORMAL) (T score from -1.1 to -2.4: OSTEOPENIA) (T score less than or equal to -2.5: OSTEOPOROSIS) IMPRESSION: Osteoporosis. Follow-up guidelines as follows: Osteoporosis: Consider a repeat DEXA and Vertebral Fracture Assessment (VFA) exam in 2 years or sooner if medically necessary, to reassess this patient's status. Osteopenia: Consider a repeat DEXA in 2-3 years to reassess this patient's status, or if there is a new clinical indication. Normal: Consider a repeat DEXA in 5 years or sooner, or if there is a new clinical indication. All treatment decisions require clinical judgment and consideration of individual patient factors, including patient preferences, comorbidities, previous drug use, risk factors not captured in the FRAX model (e.g., frailty, falls, vitamin D deficiency, increased bone turnover, interval significant decline in bone density ) and possible under- or over-estimation of fracture risk by FRAX. In addition, the NOF Guide recommends that FDA-approved medical therapies be considered in postmenopausal women and men age >= 50 years with a: * Hip or vertebral (clinical or morphometric) fracture * T-score of <=-2.5 at the spine or hip * Ten-year fracture probability by FRAX of >= 3% for hip fracture or >=20% for major osteoporotic fracture. People with diagnosed cases of osteoporosis or at high risk for fracture should have regular bone mineral density tests. For patients eligible for Medicare, routine testing is allowed once every 2 years. The testing frequency can be increased to one year for patients who have rapidly progressing disease, those who are receiving or discontinuing medical therapy to restore bone mass, or have additional risk factors. Dictated by: Jose Francisco Melton M.D. on 04/22/2024 at 17:07 Approved by: Jose Francisco Melton M.D. on 04/22/2024 at 17:08
--- NOTE | 2024-04-22 15:42 | DI.ECHO.S_ITS ---
[place] [facility]---------+ [facility] : : [id number] : : [place] : : [id number] : : Phone: [phone] Echocardiogram Report + + :Name: KANE ALMONTE Study Date: 04/22/2024 Height: 59 in : :[facility] ReadingLocation: Weight: 161 lb : : Gender: Female BSA: 1.7 m2 : :: 1935 Age: 89 yrs BP: 160/72 mmHg: :Reason For Study: MURMUR : :Ordering Physician: WILFRID, : :WALTER Solorio Performed By: Tavon Fitch : :Referring: WALTER YUEN : + + Interpretation Summary 1) Normal left ventricular thickness, size, wall motion, and systolic function (EF 60-65%). 2) Normal right ventricular size and function. 3) There is mild to moderate aortic stenosis (valve area 1.6cm2, mean gradient 25mmHg, severity ratio 0..47). 4) There is mild to moderate aortic regurgitation. 5) No prior Echo available for comparison. Procedure: A two-dimensional transthoracic echocardiogram with color flow and Doppler was performed. The study quality was technically adequate. There is no prior echocardiogram noted for this patient. The patient was in sinus rhythm with heart rates between 58-64 bpm during the exam. Left Ventricle: The left ventricle is normal in size and wall thickness. The ejection fraction is estimated to be 65-70%. Left ventricular systolic function appears normal without focal wall motion abnormalities. Diastolic parameters suggest a pseudonormalization pattern, consistent with probable elevated filling pressures. Right Ventricle: The right ventricle is normal size. The right ventricular systolic function is normal. Atria: The left atrial size is normal. Right atrial size is normal. The interatrial septum grossly appears intact with no obvious evidence for an atrial septal defect. Mitral Valve: The mitral valve is normal. MAC. There is no mitral valve stenosis. There is trace mitral regurgitation. Aortic Valve: The aortic valve is trileaflet. The aortic valve is mildly calcified. There is mild to moderate aortic stenosis. The peak aortic velocity is 3.13 m/sec. The aortic valve mean gradient is 24.59 mmHg. There is mild to moderate aortic regurgitation. Tricuspid Valve: The tricuspid valve is not well visualized, but is grossly normal. There is no tricuspid stenosis. There is mild tricuspid regurgitation. The right ventricular systolic pressure is estimated to be at least 39 mmHg based on an estimated right atrial pressure of 8 mm Hg. Pulmonic Valve: The pulmonic valve is not well visualized. There is no pulmonic valvular stenosis. There is a trace or physiologic amount of pulmonic regurgitation. Great Vessels: The aortic root is normal size. The dimensions of the ascending aorta are normal. The IVC is dilated (diameter is greater than 2.1 cm) yet it collapses greater than 50% with a sniff. This suggests a right atrial pressure of 8 mm Hg. Pericardium/ Pleura There is no pericardial effusion. There is no pleural effusion. MMode/2D Measurements & Calculations LVIDd: 4.4 cm LVOT diam: 2.1 cm LVIDs: 2.4 cm Ao root diam: 3.2 cm FS: 46.5 % asc Aorta Diam: 3.3 cm IVSd: 0.97 cm LVPWd: 1.0 cm LV floyd. diameter/BSA (cm/m^2): 2.6 LV sys. diameter/BSA (cm/m^2): 1.4 LA A2 area: 19.4 cm2 RA long axis: 5.0 cm LA A4 area: 22.5 cm2 RA area: 17.3 cm2 LA length (vol): 5.7 cm RA vol: 50.8 ml LA vol: 64.9 ml RA : 30.2 ml/m2 LA vol index: 38.6 ml/m2 IVC diam: 2.2 cm RVD1 (basal): 3.6 cm RVD2 (mid): 3.0 cm TAPSE: 2.9 cm Doppler Measurements & Calculations Ao V2 max: 312.9 cm/sec LVOT Max Pardeep: 134.1 cm/sec Ao V2 mean: 236.2 cm/sec LV V1 max P.2 mmHg Ao max P.2 mmHg LV V1 VTI: 37.7 cm Ao mean P.6 mmHg TAVO(I,D): 1.6 cm2 Ao V2 VTI: 80.9 cm TAVO(V,D): 1.5 cm2 sev ratio: 0.47 TAVO indexed to BSA (cm^2/m^2): 0.96 AI P1/2t: 530.7 msec AI dec slope: 208.3 cm/sec2 MV E max pardeep: 93.4 cm/sec TR max pardeep: 282.6 cm/sec MV A max pardeep: 97.2 cm/sec TR max P.9 mmHg MV E/A: 0.96 PA V2 max: 123.3 cm/sec Med Peak E' Pardeep: 5.7 cm/sec PA V2 mean: 88.8 cm/sec E/E' med: 16.3 PA mean P.4 mmHg Lat Peak E' Pardeep: 6.7 cm/sec PA pr(Accel): 41.3 mmHg E/E' lat: 13.9 E/e' average: 15.1 MV dec time: 0.26 sec SV(LVOT): 130.5 ml Reading Physician:06:00 PM
== END ==
PROVIDERS: PCP Student in an Organized Health Care Education/Training Program; Referring Provider Registered Nurse; Visit Provider Registered Nurse
DX: Z13.820 Encounter for screening for osteoporosis (principal); R01.1 Cardiac murmur, unspecified; M81.0 Age-related osteoporosis without current pathological fracture; I08.2 Rheumatic disorders of both aortic and tricuspid valves; Z78.0 Asymptomatic menopausal state
CPT/HCPCS: 77080; 93306

== ENCOUNTER → 2024-06-09 14:17 | Outpatient (CLI) | payer OTHER, SELFPAY ==
[2021-04-09 12:00] VITALS: BMI 33.0
--- NOTE | 2024-06-09 14:18 | DI.RAD.S_ITS ---
PROCEDURE: XR SHOULDER LT MIN 2V INDICATIONS: LEFT SHOULDER PAIN TECHNIQUE: 3 views of the shoulder were acquired. COMPARISON: [facility], CR, XR SHOULDER RT MIN 2V, 11/29/2020, 14:33. [facility], CR, XR SHOULDER RT MIN 2V, 04/12/2019, 9:41. FINDINGS: Bones: No fractures or dislocations. Left shoulder arthroplasty in place. Hardware appears intact without surrounding fracture or lucency. No suspicious bony lesions. Visualized ribs appear intact. Soft tissues: No suspicious soft tissue calcifications. IMPRESSION: Left shoulder arthroplasty without evidence of complication. No acute osseous abnormalities. Mild acromioclavicular joint degeneration. Dictated by: Basilio Montana M.D. on 06/09/2024 at 15:47 Approved by: Basilio Montana M.D. on 06/09/2024 at 15:47
== END ==
PROVIDERS: PCP Student in an Organized Health Care Education/Training Program; Referring Provider Physical Medicine & Rehabilitation; Visit Provider Physical Medicine & Rehabilitation
DX: M19.012 Primary osteoarthritis, left shoulder (principal); M25.512 Pain in left shoulder; Z96.612 Presence of left artificial shoulder joint
CPT/HCPCS: 73030